=== PATIENT | female | born 1960 | race Caucasian/White ===

== ENCOUNTER 2018-08-23 14:35 | Emergency (ER) | payer BC, SELFPAY ==
[2018-08-23 14:36] VITALS: BP 145/79; PULSE 71; RESP 17; TEMP 36.3; O2SAT 98; BMI 32.8
--- NOTE | 2018-08-23 14:56 | RAD_ITS ---
STUDY: X-RAY - RIGHT HAND REASON FOR EXAM: Female, 57 years old. Pain at the base of the thumb following a fall. TECHNIQUE: 3 view(s) of the hand. COMPARISON: None. FINDINGS: Normal radiocarpal articulation. Normal distal radioulnar joint. Normal visualized carpal bones. Normal carpal articulations Normal carpometacarpal articulation of the thumb. Normal second through fifth carpometacarpal joints. Normal metacarpi. Normal metacarpophalangeal joint of the thumb. Normal interphalangeal joint of the thumb. Normal proximal and distal phalanges of the thumb. Normal metacarpophalangeal joints of the second through fifth fingers. Normal proximal and distal interphalangeal joints of the second through fifth fingers. Normal phalanges of the second through fifth fingers. The soft tissue structures are unremarkable. RAD/Hand Min 3 Views IMPRESSION: Normal x-ray examination of the hand. Electronically Signed: Hong Murillo, at 15:22 EDT , Service support ,
--- NOTE | 2018-08-23 15:25 | ED.VISSUMM ---
- ER Visit Summary Date of Service: 08/23/18 Chief Complaint: Right thumb injury History of Present Illness: The patient is a 57 F history of A. fib and reflux. Patient is right-hand dominant. She was sitting on the couch about a month ago reached over to separate her dogs he will be getting the flight and she lost her balance and fell injuring her right thumb. Denies any history she is right-hand dominant. No prior surgery to her right hand. Denies any other injuries. Physical Examination: Signs are stable afebrile. ENT exam unremarkable. Neck nontender no lymphadenopathy. Lungs clear to auscultation. Heart regular rhythm no murmur. Normal. Extremities moves all 4. Neurovascular intact. Thumb tender at the metacarpal phalangeal joint. No deformity. No swelling. Neurovascular intact. Normal cap refill touch sensation. Full flexion-extension of the right thumb. With stressing of the interphalangeal and MCP joints there is no signs of ecchymosis tear. No signs of a gamekeepers. Other fingers of the hand and palm are unremarkable. Patient has full flexion and extension of all digits of the hand. Test Results: X-ray of the right hand 3 view shows no acute abnormality read by myself. No fracture. No dislocation. Emergency Department Course and Treatment: Ice and elevate. Motrin for pain and inflammation. Follow-up if not improving. Treatment Plan: Ice and elevate. Motrin for pain. Follow-up with not improving. Disposition: Discharge Impression: Acute right thumb injury post fall This note was generated with SmashChart dictation software. It may contain incorrect words, spelling, and punctuation that were not noted in review of the chart prior to signing ED Disposition - Plan for ED Patient: Referrals: Suzan Orantes DO [Primary Care Provider] -
--- NOTE | 2018-08-23 15:28 | ED.DEP ---
ED Disposition - Plan for ED Patient: Disposition: Home or Assisted Living Instructions: CONTUSION, Upper Extremity Referrals: Carter Houser, [STAFF PHYSICIAN] - As soon as possible Additional Instructions: Ice and elevate your right thumb. Motrin for pain and inflammation. This is improving follow-up with Dr. Carter Houser of orthopedics for further evaluation. Your x-rays today were negative. No fracture or dislocation.
--- NOTE | 2018-08-23 15:51 | ED.RN ---
PT GIVEN WRITTEN AND VERBAL DISCHARGE INSTRUCTIONS. PT VERBALIZES UNDERSTANDING, IS TO FOLLOW UP WITH ORTHO. AMBULATES OUT OF DEPT BY SELF.
== END 2018-08-23 15:52 | disposition home or self-care (01) ==
LOC: ED 15:44
PROVIDERS: Emergency Provider Emergency Medicine; Family Provider Internal Medicine; PCP Internal Medicine
DX: S69.91XA Unspecified injury of right wrist, hand and finger(s), initial encounter (principal); I48.91 Unspecified atrial fibrillation; K21.9 Gastro-esophageal reflux disease without esophagitis; Z79.899 Other long term (current) drug therapy; W18.30XA Fall on same level, unspecified, initial encounter; Y93.89 Activity, other specified; Y92.009 Unspecified place in unspecified non-institutional (private) residence as the place of occurrence of the external cause; Y99.8 Other external cause status
CPT/HCPCS: 73130; 99282

== ENCOUNTER 2022-09-21 17:42 | Emergency (ER) | payer BC, SELFPAY ==
[2022-09-21 17:43] VITALS: BP 162/102; PULSE 88; RESP 18; TEMP 36.4; O2SAT 97; BMI 34.5
[2022-09-21 17:58] VITALS: BP 157/85; PULSE 83; RESP 17; O2SAT 93
[2022-09-21 18:51] VITALS: BP 165/98; PULSE 77; RESP 15; O2SAT 98
--- NOTE | 2022-09-21 18:56 | EKG12_ITS ---
Test Reason : CP Blood Pressure : / mmHG Vent. Rate : 072 BPM Atrial Rate : 072 BPM P-R Int : 140 ms QRS Dur : 086 ms QT Int : 402 ms P-R-T Axes : 061 028 030 degrees QTc Int : 440 ms Normal sinus rhythm Normal ECG Confirmed by KEYONA DU ([id number]), medical editor GAYLE WILKINS ([id number]) on 09/26/2022 8:37:24 AM Referred By: Confirmed By:KEYONA DU
--- NOTE | 2022-09-21 18:56 | ED.VIS.CHEST ---
HPI History of Present Illness Chief Complaint: Chest Pain Informant: patient Narrative Narrative: 61-year-old female presenting to the emergency department chief complaint of chest pain. Patient states that around noon today she was at an auction with her daughter. She had a pulled pork sandwich and [place] fries. Shortly thereafter she began to have a tightness in her chest which she describes as a sensation that I needed to take my bra off. It is progressively improved but is still very minimally present. She notes no nausea or vomiting. She notes no significant shortness of breath. Before going into work she noted that her blood pressure at home was elevated. She took her blood pressure at work because she still felt off and it was elevated and so she wanted to be evaluated. She states that her blood pressure has been in the 160 range when she takes it at home but when she goes to her doctor's office it is not usually that high. She is a non-smoker. No change in exercise tolerance. No DVT or PE risk factors. No arm or leg symptoms. [facility] Medical History Earache, left Heart disease Allergy/AdvReac Type Severity Reaction Status Date / Time Penicillins Allergy Angioedema Verified 09/21/22 17:43 Tetracyclines Allergy Anaphylaxis Verified 09/21/22 17:43 Social History Smoking Status: Never smoker ROS ROS ED Constitutional Constitutional ED: Denies chills or weight loss Eyes Eyes: Denies change in vision or diplopia ENT ENT ED: Denies ear pain, rhinorrhea or sore throat Cardiovascular Cardiovascular: Reports chest pain; Denies orthopnea, palpitations or racing heartbeat Respiratory/Chest Respiratory/Chest: Denies cough, dyspnea or orthopnea Gastrointestinal Gastrointestinal: Denies abdominal pain, diarrhea, nausea or vomiting Genitourinary Genitourinary ED: Denies dysuria, hematuria or urinary frequency Musculoskeletal Musculoskeletal: Denies arthralgias or myalgias Integumentary Denies abscess or rash Neurologic Neurologic: Denies headache(s) or weakness Psychiatric Psychiatric: Denies anxiety, depression, suicidal ideation or suicidal thoughts Endocrine Endocrinology: Denies polydipsia, polyphagia or polyuria Allergic/Immunologic Allergic/Immunologic ED: Denies mouth swelling, tongue swelling or urticaria EXAM Physical Exam Const Vital Signs: 09/21/22 17:43 09/21/22 17:58 09/21/22 18:51 Temperature 97.5 F L Temperature Source Temporal Pulse Rate 88 83 77 Respiratory Rate 18 17 15 Blood Pressure 162/102 H 157/85 H 165/98 H Blood Pressure Mean 122 109 120 Pulse Ox 97 93 98 Oxygen Delivery Method Room Air Room Air Room Air 09/21/22 19:00 Temperature Temperature Source Pulse Rate 73 Respiratory Rate 15 Blood Pressure 165/98 H Blood Pressure Mean 120 Pulse Ox 98 Oxygen Delivery Method Room Air Positive well nourished and well developed General Appearance ED: well developed HEENT Reports normocephalic, head/scalp atraumatic and moist mucous membranes Eyes PERRL and EOMs intact bilaterally Neck no lymphadenopathy, supple and no JVD Resp normal respiratory effort and clear to auscultation bilaterally Cardio regular rate, regular rhythm and no murmurs GI normal to inspection, nondistended, normoactive bowel sounds and non-tender Palpation: soft Back/Spine no CVA tenderness and normal ROM Extremity normal to inspection General Extremety ED: Negative for edema General Extremity: Negative for edema Neuro oriented x3 and CN's II-XII intact bilaterally Sensorium / Orientation: alert Motor Exam: strength 5/5 throughout Psych mental status grossly normal Mood & Affect: Negative for depressed or tearful Skin no rashes or lesions noted and no wounds MDM MDM MDM Narrative Medical decision making narrative: My interpretation of the chest x-ray is no acute process normal mediastinal silhouette. See as he is normal. BMP is normal. Troponin representing greater than 6 hours of constant symptoms is in the normal range at 4. Patient has had no events on the monitor. She received a dose of aspirin. At the current time I would believe that the patient most likely is not having ACS. I do not believe this to be pulmonary embolism dissection pneumothorax or pneumonia. I think it is reasonable that we discharge the patient home have her follow-up with primary care return if worsening or recurrent symptoms. Patient was updated with our plan and her results and in agreement with it. No further questions at the bedside Lab Data Attestation: I reviewed the patient's lab results. Labs: Laboratory Results - last 24 hr 09/21/22 19:40 WBC 9.5 RBC 4.32 Hgb 12.5 Hct 39.9 MCV 92.4 MCH 28.9 MCHC 31.3 L RDW Std Deviation 48.8 H RDW Coeff of Cale 14.4 Plt Count 370 MPV 11.2 Immature Gran % (Auto) 0.400 Neut % (Auto) 54.7 Lymph % (Auto) 35.6 [place] % (Auto) 7.3 Eos % (Auto) 1.6 Baso % (Auto) 0.4 Absolute Neuts (auto) 5.2 Absolute Lymphs (auto) 3.39 Nucleated RBC % 0 Sodium 140 Potassium 4.0 Chloride 108 H Carbon Dioxide 28.0 Anion Gap 4 L BUN 15 Creatinine 1.01 Estim Creat Clear Calc 52.63 Est GFR (MDRD) Af Amer 72 Est GFR (MDRD) Non-Af 59 L BUN/Creatinine Ratio 14.9 Glucose 93 Calcium 8.7 Troponin I High Sens 4 EKG Initial EKG: Attestation: I personally reviewed and interpreted this EKG as follows: Comments: No sinus rhythm ventricular rate of 72 bpm. No concerning features of ACS or ectopy noted Discharge Plan Triage Chief Complaint: Chest Pain ED Provider: Alejandro Mendez Dx/Rx/DC Orders Clinical Impression: Chest pain Instructions: ED Chest Pain, Noncardiac Primary Care Provider: Suzan Orantes Referrals: Suzan Orantes DO [Primary Care Provider] - 1-2 Weeks Disposition Disposition: Home, Self Care
[2022-09-21 19:00] VITALS: BP 165/98; PULSE 73; RESP 15; O2SAT 98
--- NOTE | 2022-09-21 19:05 | RAD_ITS ---
STUDY: X-RAY CHEST REASON FOR EXAM: Female, 61 years old. chest pain TECHNIQUE: Single AP portable view of the chest. COMPARISON: 08/20/2015 FINDINGS: The lungs are clear and expanded. There is no demonstrated pleural abnormality. Normal size heart. Normal mediastinum and fantasma. Normal visualized pulmonary arteries. Normal visualized aortic arch and descending thoracic aorta. Normal visualized thoracic spine. Normal visualized ribs, clavicles, and shoulders. There is no demonstrated abnormality of the visualized soft tissue structures of the upper abdomen. RAD/Chest 1 View (Portable) IMPRESSION: Normal x-ray examination of the chest. Electronically Signed: Vance Moran MD at 19:44 EDT ,
[2022-09-21] MEDS: Aspirin 81 MG TAB.CHEW 324 MG PO (19:38)
[2022-09-21 19:49] LABS: Absolute Lymphocyte Count 3.39 X10^3/uL (0.83-4.51); Absolute Neutrophil Count 5.2 X10^3/uL (2.0-7.7); Basophil# 0.04 X10^3/uL; Basophil% 0.4 % (0-1); Eosinophil# 0.15 X10^3/uL; Eosinophils% 1.6 % (0-5); Hematocrit 39.9 % (37-47); Hemoglobin 12.5 g/dL (12.0-15.0); Lymphocyte # 3.39 X10^3/ul (0.83-4.51); Lymphocyte % 35.6 % (19-41); Mean Corp Hgb Conc 31.3 g/dL (32-36); Mean Corpuscular Hgb 28.9 pg (27.0-32.0); Mean Corpuscular Volume 92.4 fL (81-99); Mean Platelet Vol. 11.2 fl (6.2-12.0); Monocyte# 0.69 X10^3/uL; Monocyte% 7.3 % (0-10); NRBC Flagged by Analyzer 0 % (0-5); Neutrophil % 54.7 % (47-70); Platelet Count 370 K/mm3 (150-450); RBC Distribution Width CV 14.4 % (11.6-14.6); RBC Distribution Width SD 48.8 fl (35.1-43.9); Red Blood Count 4.32 M/mm3 (4.2-5.4); White Blood Count 9.5 K/mm3 (4.4-11.0)
[2022-09-21 20:12] LABS: Anion Gap 4 (5-15); BUN 15 mg/dL (7-18); BUN/Creat Ratio 14.9 RATIO (10-20); Calcium,Total 8.7 mg/dL (8.5-10.1); Chloride 108 mmol/L (98-107); Creatinine, Serum 1.01 mg/dL (0.55-1.02); EST Glomerular Filtration Rate 59 mL/min (>60); Est Glom Filt Rate - Afr Amer 72 mL/min (>60); Estimated Creatinine Clearance 52.63 ml/min; Glucose 93 mg/dL (74-106); Sodium Level 140 mmol/L (136-145); Troponin-I HS (w/2H Reflex) 4 pg/mL (3.0-54.0)
[2022-09-21 21:00] VITALS: BP 139/80; PULSE 70; RESP 18; O2SAT 97
[2022-09-21 21:46] LABS: Reflex Troponin-HS? (from REC) Y
== END 2022-09-21 21:00 | disposition home or self-care (01) ==
PROVIDERS: Emergency Provider Emergency Medicine; PCP Internal Medicine; Visit Provider Emergency Medicine
DX: R07.9 Chest pain, unspecified (principal)
CPT/HCPCS: 71045; 80048; 84484; 85025; 93005; 99284

== ENCOUNTER 2023-09-28 19:17 | Observation (INO) | payer BC, SELFPAY ==
[2023-09-28 19:17] VITALS: BP 161/90; PULSE 86; RESP 14; TEMP 36.8; O2SAT 98; BMI 33.4
--- NOTE | 2023-09-28 19:54 | CT_ITS ---
We are attempting to reach an attending provider to discuss findings. An addendum with communication details will be sent when the communication is complete. STUDY: CT BRAIN WITHOUT CONTRAST REASON FOR EXAM: Female, 62 years old. Neuro deficit, acute, stroke suspected RADIATION DOSAGE (If Supplied By Facility): CTDIvol = ( ) mGy, DLP = ( 745.49 ) mGycm TECHNIQUE: Transaxial CT imaging of the brain was performed without administration of intravenous contrast material. Individualized dose optimization techniques were used for this CT. The protocol utilizes one or more of the following dose reduction techniques: automated exposure control, adjustment of mA and/or kV according to patient size,and/or use of iterative reconstruction technique. COMPARISON: No relevant priors. FINDINGS: Normal soft tissue structures. Normal calvarium. Normal size ventricles and extra-axial spaces for the patient''s age. Normal white matter tracts of the cerebral hemispheres. Normal basal ganglia and thalami. Normal brainstem. Normal cerebellum. There is no intracranial hemorrhage. There are no findings of an acute ischemic infarction. Normal visualized paranasal sinuses. CT/STROKE Brain/Head without Cont IMPRESSION: Normal unenhanced CT scan of the brain. Electronically Signed: Louis Tamayo MD at 20:20 EDT ,
--- NOTE | 2023-09-28 19:55 | CT_ITS ---
We are attempting to reach an attending provider to discuss findings. An addendum with communication details will be sent when the communication is complete. STUDY: CTA HEAD AND NECK WITH CONTRAST REASON FOR EXAM: Female, 62 years old. Neuro deficit, acute, stroke suspected RADIATION DOSAGE (If Supplied By Facility): CTDIvol = ( 21.26 ) mGy, DLP = ( 634.86 ) mGycm TECHNIQUE: CT angiography was performed with a multi-detector CT scanner. Data acquisition was obtained from the skull base through the vertex following intravenous administration of IV 100mL [id number]-[id number]. MIP images were reconstructed from the axial data set. Post-processing of the angiographic images was performed, with multiplanar reformation and 3D reconstruction. Individualized dose optimization techniques were used for this CT. The protocol utilizes one or more of the following dose reduction techniques: automated exposure control, adjustment of mA and/or kV according to patient size,and/or use of iterative reconstruction technique. COMPARISON: Noncontrast CT brain from today. FINDINGS: Normal bilateral petrous carotid arteries. Normal right cavernous carotid artery with a normal supraclinoid bifurcation. Normal left cavernous carotid artery with a normal supraclinoid bifurcation. Normal right A1 segments of the anterior cerebral artery. Normal left A1 segments of the anterior cerebral artery. There is non-visualization of the anterior communicating artery (ACOM). Normal bilateral A2 segments of the anterior cerebral arteries. Normal right M1 and M2 segments of the middle cerebral arteries, with a normal M1 bifurcation. Normal left M1 and M2 segments of the middle cerebral arteries, with a normal M1 bifurcation. Normal right posterior communicating artery (PCOM). Normal left posterior communicating artery (PCOM). Normal bilateral vertebral arteries. Normal basilar artery with a normal basilar bifurcation. The visualized bilateral superior cerebellar (SCA) arteries are normal. Normal bilateral P1, P2 and visualized P3 segments of the posterior cerebral arteries. There is no demonstrated aneurysm of the [place]. There is no demonstrated abnormality of the visualized brain. AORTIC ARCH: Normal visualized aortic arch. Normal origins of the brachiocephalic, left common carotid, and left subclavian arteries. RIGHT CAROTID ARTERIES: Normal right common carotid artery (CCA). Normal right common carotid bulb. Normal origin of the right internal carotid (ICA) artery without a hemodynamically significant stenosis. Normal visualized cervical portion of the right internal carotid artery. Normal origin of the right external carotid artery (ECA). LEFT CAROTID ARTERIES: Normal left common carotid artery (CCA). Small amount of plaque in the carotid bulb. Normal origin of the left internal carotid (ICA) artery without a hemodynamically significant stenosis. Normal visualized cervical portion of the left internal carotid artery. Normal origin of the left external carotid artery (ECA). VERTEBRAL ARTERIES: Normal bilateral vertebral arteries. CT/STROKE CTA Head AND Neck W/Con IMPRESSION: No significant stenosis Electronically Signed: Louis Tamayo MD at 20:45 EDT ,
[2023-09-28 20:11] LABS: Absolute Lymphocyte Count 2.57 X10^3/uL (0.83-4.51); Absolute Neutrophil Count 5.2 X10^3/uL (2.0-7.7); Basophil# 0.04 X10^3/uL; Basophil% 0.5 % (0-1); Eosinophil# 0.16 X10^3/uL; Eosinophils% 1.9 % (0-5); Hematocrit 39.3 % (37-47); Hemoglobin 12.6 g/dL (12.0-15.0); Lymphocyte # 2.57 X10^3/ul (0.83-4.51); Lymphocyte % 29.7 % (19-41); Mean Corp Hgb Conc 32.1 g/dL (32-36); Mean Corpuscular Hgb 28.8 pg (27.0-32.0); Mean Corpuscular Volume 89.9 fL (81-99); Mean Platelet Vol. 10.7 fl (6.2-12.0); Monocyte% 6.9 % (0-10); NRBC Flagged by Analyzer 0 % (0-5); Neutrophil # 5.24 X10^3/uL (2.7-7.7); Neutrophil % 60.7 % (47-70); Platelet Count 359 K/mm3 (150-450); RBC Distribution Width CV 13.9 % (11.6-14.6); RBC Distribution Width SD 46.6 fl (35.1-43.9); Red Blood Count 4.37 M/mm3 (4.2-5.4); White Blood Count 8.6 K/mm3 (4.4-11.0)
--- NOTE | 2023-09-28 20:18 | RAD_ITS ---
STUDY: X-RAY CHEST REASON FOR EXAM: Female, 62 years old. Neuro deficit, acute, stroke suspected TECHNIQUE: Single frontal view of the chest. COMPARISON: September 21, 2022 FINDINGS: The lungs are clear and expanded. There is no demonstrated pleural abnormality. Normal size heart. Normal mediastinum and fantasma. Normal visualized pulmonary arteries. Normal visualized aortic arch and descending thoracic aorta. Normal visualized thoracic spine. Normal visualized ribs, clavicles, and shoulders. There is no demonstrated abnormality of the visualized soft tissue structures of the upper abdomen. RAD/Chest 1 View IMPRESSION: Normal x-ray examination of the chest. Electronically Signed: Louis Tamayo MD at 21:23 EDT ,
[2023-09-28 20:31] LABS: Anion Gap 6 (5-15); BUN 13 mg/dL (7-18); BUN/Creat Ratio 15.1 RATIO (10-20); Calcium,Total 8.7 mg/dL (8.5-10.1); Chloride 108 mmol/L (98-107); Creatinine, Serum 0.86 mg/dL (0.55-1.02); EST Glomerular Filtration Rate 71 mL/min (>60); Est Glom Filt Rate - Afr Amer 86 mL/min (>60); Estimated Creatinine Clearance 75.68 ml/min; Glucose 132 mg/dL (74-106); Potassium 4.1 mmol/L (3.5-5.1); Sodium Level 141 mmol/L (136-145); Troponin-I HS 4 pg/mL (3.0-54.0)
[2023-09-28 20:39] LABS: Prothrombin Time (Protime)PT. 13.2 SECONDS (11.7-14.9)
--- NOTE | 2023-09-28 20:39 | EDS_ITS ---
HPI History of Present Illness Chief Complaint: Headache Detail of Chief Complaint: Headache and left visual field abnormality Informant: patient Onset/Context/Timing Onset: Today and Hours Context: Sudden Onset Timing: Intermittent Quality and Location: Positive for - (Left visual field abnormality) Onset: 1809 Current Severity: Gone Maximum Severity: Mild Worsened by: Nothing Relieved by: Not applicable Associated Symptoms Associated Symptoms: Positive for Headache (Complains of left retro-orbital discomfort) and Nausea; Negative for Vomiting or Chest Pain Narrative Narrative: Patient is a 62-year-old woman. She has history of GERD. She denies history of hypertension, diabetes or cardiovascular disease. She states she was at work. The visual disturbance started tenderness prior to the head discomfort. She had no trouble with speech or swallowing. She denies paresthesia, anesthesia or motor weakness in the upper or lower extremity. She denied problems with coordination or balance. She had no other complaints. Her symptoms resolved.. Patient has no history of migraine headaches and would be unusual for 62-year-old to be diagnosed with new onset migraine headaches. Patient states when she was looking at her 2 coworkers the 1 on the left was not visualized. Prior similar symptoms: No Recent Illness/Hospitalization: No [facility] Medical History Afib Earache, left Heart disease Home Medications ?Medication ?Instructions ?Recorded ?Last Taken ?Type naproxen 500 mg tablet 500 mg PO Q8H PRN pain 09/28/23 09/25/23 History omeprazole 40 mg capsule,delayed 40 mg PO DAILY 09/28/23 09/28/23 History release Allergy/AdvReac Type Severity Reaction Status Date / Time Penicillins Allergy Angioedema Verified 09/28/23 19:17 Tetracyclines Allergy Anaphylaxis Verified 09/28/23 19:17 Social History Smoking Status: Never smoker ROS ROS ED Constitutional Constitutional ED: Denies chills, fever(s) or subjective Eyes Eyes: Reports change in vision and other; Denies blurry vision or diplopia Cardiovascular Cardiovascular: Denies chest pain or palpitations Respiratory/Chest Respiratory/Chest: Denies cough or dyspnea Gastrointestinal Gastrointestinal: Denies abdominal pain, diarrhea or vomiting Genitourinary Genitourinary ED: Denies dysuria, hematuria or urinary frequency Musculoskeletal Musculoskeletal: Denies arthralgias, back pain, myalgias or neck pain Integumentary Denies abscess or rash Neurologic Neurologic: Reports headache(s); Denies paresthesias or weakness Psychiatric Psychiatric: Denies anxiety, depression or suicidal ideation Endocrine Endocrinology: Denies polydipsia, polyphagia or polyuria Hematologic/Lymphatic Hematologic/Lymphatic: Denies easy bleeding or easy bruising EXAM Physical Exam Const Vital Signs: 09/28/23 19:17 09/28/23 20:05 Temperature 98.2 F Temperature Source Temporal Pulse Rate 86 Respiratory Rate 14 Blood Pressure 161/90 H Blood Pressure Mean 113 Pulse Ox 98 Oxygen Delivery Method Room Air Room Air Positive well nourished and well developed General Appearance ED: well developed and NAD HEENT Reports moist mucous membranes and dry mucous membranes Mouth ED: Yes dry mucous membranes Mouth: dry mucous membranes Eyes PERRL and EOMs intact bilaterally Eyes Narrative: There is no nystagmus. There is no visual field cut pleasantly. Resp normal respiratory effort and clear to auscultation bilaterally Cardio no murmurs Rate: regular rate Rhythm: regular rhythm Heart Sounds: S1 normal and S2 normal GI normal to inspection, nondistended, normoactive bowel sounds, soft to palpation, non-tender, non-distended and no masses Back/Spine no CVA tenderness Extremity normal to inspection Neuro oriented x3, CN's II-XII intact bilaterally and no sensory deficits noted [place] Coma Scale: document GCS findings Spontaneous Obeys Commands Oriented 15 Sensorium / Orientation: alert Speech: speech normal Gait (Neuro): normal gait Psych mental status grossly normal Skin no wounds General Skin Exam: Negative for jaundice Lesions: no lesions Rashes: no rashes NIHSS NIHSS Initial: 1a Level of Consciousness: 0 1b LOC Questions (Score 2 if aphasic/stupor): 0 1c LOC Commands (Only score 1st attempt): 0 2 Best Gaze (If aphasic, use reflexive mvmts.): 0 3 Visual: 0 4 Facial Palsy: 0 5 Motor Arm Right (UN = amputation/fusion): 0 5 Motor Arm Left: 0 6 Motor Leg Right: 0 6 Motor Leg Left: 0 7 Limb ataxia (Only + if out of proportion): 0 8 Sensory (Aphasia/stupor=0 or 1, coma=2): 0 9 Best Language: 0 10 Dysarthria (mute, coma=2, intubated=UN): 0 11 Extinction and Inattention (only scored if +): 0 Total Score: 0 MDM MDM MDM Narrative Medical decision making narrative: Patient's symptoms are concerning for posterior circulatory event. Stroke order set was initiated. Received radiology contact that the CT minus and the CTA of the head and neck were both negative. With retro-orbital discomfort need to consider orbital cellulitis, glaucoma, chelle bt temporal arteritis since her visual symptoms resolved which 1 would not expect with temporal arteritis symptoms not consistent with an ocular migraine. This may be a very atypical presentation. History & Record Review Additional record(s) reviewed:: Prior ED visit Lab Data Attestation: I reviewed the patient's lab results. Lab results narrative: CBC normal. Basic metabolic panel normal. Troponin is normal. Labs: Laboratory Results - last 24 hr 09/28/23 20:03 WBC 8.6 RBC 4.37 Hgb 12.6 Hct 39.3 MCV 89.9 MCH 28.8 MCHC 32.1 RDW Std Deviation 46.6 H RDW Coeff of Cale 13.9 Plt Count 359 MPV 10.7 Immature Gran % (Auto) 0.300 Neut % (Auto) 60.7 Lymph % (Auto) 29.7 [place] % (Auto) 6.9 Eos % (Auto) 1.9 Baso % (Auto) 0.5 Absolute Neuts (auto) 5.2 Absolute Lymphs (auto) 2.57 Nucleated RBC % 0 PT 13.2 INR 1.0 APTT 34.0 Sodium 141 Potassium 4.1 Chloride 108 H Carbon Dioxide 27.0 Anion Gap 6 BUN 13 Creatinine 0.86 Estim Creat Clear Calc 75.68 Est GFR (MDRD) Af Amer 86 Est GFR (MDRD) Non-Af 71 BUN/Creatinine Ratio 15.1 Glucose 132 H Calcium 8.7 Troponin I High Sens 4 Radiography Chest X-Ray - ED: 1 View and Read by ED Physician (Single view chest x-ray reveals no acute abnormality. Cardiac silhouette size normal. Lung parenchyma normal. [place] is normal.) Diagnostic Testing: Clinical Impression(s) from Imaging Studies Brain CT 09/28/23 19:54 IMPRESSION: Normal unenhanced CT scan of the brain. Electronically Signed: Louis Tamayo MD at 20:20 EDT Reading Location ID and State: [facility] / [place] Tel , Service support , ADDENDUM: 09/28/232027 IMPRESSION: Normal unenhanced CT scan of the brain. N.B. : The above Results were Read Back by Louis Tamayo MD to James Camacho MD, and understanding confirmed on 09/28/2023 20:21:34 (ET). Electronically Signed: Louis Tamayo MD at 20:20 EDT Reading Location ID and State: [facility] / [place] Tel , Service support , Head/Neck CTA 09/28/23 19:55 IMPRESSION: No significant stenosis Electronically Signed: Louis Tamayo MD at 20:45 EDT Reading Location ID and State: [facility] / [place] Tel , Service support , ADDENDUM: 09/28/232051 IMPRESSION: No significant stenosis N.B. : The above Results were Read Back by Louis Tamayo MD to James Camacho MD, and understanding confirmed on 09/28/2023 20:45:38 (ET). Electronically Signed: Louis Tamayo MD at 20:45 EDT Reading Location ID and State: [facility] / [place] Tel , Service support , Discharge Plan Dx/Rx/DC Orders Clinical Impression: Visual field cut, Brain TIA Disposition Disposition: Acute Care Hospital [facility]
--- NOTE | 2023-09-28 20:59 | ECHOD_ITS ---
Reason For Study: TIA/CVA Procedure This was a 2D Doppler, Color Flow transthoracic echocardiogram. Exam performed portable in patient room. Left Ventricle Normal size and thickness. The left ventricular ejection fraction is 65 %. Right Ventricle Normal right ventricle. Atria The left and right atria are normal. Bubble contrast study is negative for PFO/ASD. Mitral Valve Moderate focal mitral valve calcification of the posterior leaflet. Trivial mitral valve insufficiency. Tricuspid Valve Mild tricuspid valve insufficiency. Normal pulmonary artery pressure. Aortic Valve Trisinus/trileaflet aortic valve. Pulmonic Valve The pulmonic valve is not well visualized. Trivial pulmonic valve insufficiency. Great Vessels Normal sized aortic root. Pericardium/Pleural No pericardial effusion. Medication Performed a rapid injection of agitated mix of 9 cc saline and 1cc air to assess for atrial septal defect. MMode/2D Measurements & Calculations LVIDd: 4.8 cm IVSd: 0.84 cm Ao root diam: 3.2 cm LVIDs: 2.7 cm LVPWd: 0.72 cm RVDd: 3.1 cm FS: 43.5 % LAV(MOD-bp): 46.5 ml LVAd ap4: 25.1 cm2 SV(MOD-sp4): 40.2 ml LAV(MOD-bp) Indexed: 23.4 ml/m2 LVLd ap4: 7.5 cm LAV(MOD-sp2): 41.5 ml EDV(MOD-sp4): 70.7 ml LAV(MOD-sp4): 50.7 ml EDV(sp4-el): 71.1 ml LVAs ap4: 15.1 cm2 LVLs ap4: 6.5 cm ESV(MOD-sp4): 30.5 ml ESV(sp4-el): 30.0 ml EF(MOD-sp4): 56.9 % EF(sp4-el): 57.9 % SV(sp4-el): 41.2 ml LA A4 area: 18.5 cm2 LA dimension(2D): 3.4 cm RA A4 area: 17.7 cm2 TAPSE: 2.9 cm Time Measurements MV dec time: 0.16 sec Doppler Measurements & Calculations MV E max devante: 72.0 cm/sec Lat Peak E' Devante: 8.6 cm/sec Med Peak E' Devante: 8.1 cm/sec MV A max devante: 92.7 cm/sec E/E' lat: 8.3 E/E' med: 8.9 MV E/A: 0.78 MV V2 max: 105.6 cm/sec MV P1/2t max devante: 82.6 cm/sec Ao V2 max: 117.4 cm/sec MV max P.5 mmHg MV P1/2t: 66.0 msec Ao max P.5 mmHg MV V2 mean: 55.2 cm/sec MV dec slope: 366.7 cm/sec2 Ao V2 mean: 80.0 cm/sec MV mean P.4 mmHg MVA(P1/2t): 3.3 cm2 Ao mean P.9 mmHg MV V2 VTI: 23.5 cm Ao V2 VTI: 26.1 cm AV (velocity ratio): 0.83 LV V1 max: 90.3 cm/sec PA V2 max: 93.9 cm/sec TR max devante: 240.4 cm/sec LV V1 max P.3 mmHg PA V2 mean: 67.5 cm/sec TR max P.1 mmHg LV V1 mean P.8 mmHg LV V1 mean: 62.4 cm/sec LV V1 VTI: 21.7 cm ECHO/Echo Complete Interpretation Summary The left ventricular ejection fraction is 65 %. Moderate focal mitral valve calcification of the posterior leaflet. Mild tricuspid valve insufficiency. Bubble contrast study is negative for PFO/ASD. Ordering Physician: Ani Bee Referring Physician: Suzan Orantes Performed By: Marium Perez, EMMANUEL, RVT
--- NOTE | 2023-09-28 21:00 | PCM.HP.STD ---
HPI - General General Date of Admission: 09/28/23 Date of Service: 09/28/23 Chief Complaint: Transient left eye visual change/headache HPI Narrative ZAINAB CONTRERAS, is a 62 F who presented to the emergency department at [facility] on 09/28/2023 with a chief complaint of a left temporal visual field deficit/abnormality with subsequent headache. She states that the field cut occurred first then headache with left-sided neck pain and upper back pain started to follow. She also complained of some strange discomfort in the right anterior neck in the area of the sternocleidomastoid. She reports she only has some soreness on that right neck area and still having some neck and shoulder pain with persistent headache that has not changed since it started. She has no history of migraine headaches and does not get frequent headaches. She has never had visual field cut before. She reported she was looking at one of her coworkers and noticed that she could not see his entire face she indicated she closed her eyes for a minute open the back up and symptoms were still there. So she came to emergency department. She stated her visual changes lasted for about an hour in total time from start to finish. She has no history of stroke or TIA. She is not hypertensive at baseline that she is aware, she does not have a diagnosis of hyperlipidemia and she is not diabetic. She has a very remote brief history of tobacco use and denies use of any other substances. She only very occasionally drinks a glass of wine. She does have a history of paroxysmal atrial fibrillation. She stated the last time she was in A-fib was 09/21/2022. She presented to the emergency department for this but quickly converted and was discharged. Vital signs on presentation showed temperature of 98.2, heart rate 86, respiratory 14, blood pressure is 161/90, pulse ox is 98% on room air. Her CBC is completely unremarkable. Coags are normal. Chemistry panel is unremarkable, except for her glucose which is 132 however this is not fasting glucose. Troponin was 4. EKG was normal sinus rhythm without any interval abnormalities or ST-T wave changes concerning for acute ischemia. CT of the brain was unremarkable for any findings. CTA of the head and neck was unremarkable. Chest x-ray was unremarkable. [facility] Medical History (Updated 09/28/23 @ 21:[address] Ani Bee, DO) Afib Heart disease Home Medications ?Medication ?Instructions ?Recorded ?Last Taken ?Type naproxen 500 mg tablet 500 mg PO Q8H PRN pain 09/28/23 09/25/23 History omeprazole 40 mg capsule,delayed 40 mg PO DAILY 09/28/23 09/28/23 History release Allergy/AdvReac Type Severity Reaction Status Date / Time Penicillins Allergy Angioedema Verified 09/28/23 19:17 Tetracyclines Allergy Anaphylaxis Verified 09/28/23 19:17 no significant family history no surgical history Social History (Updated 09/28/23 @ 21:[address] Ani Bee, DO) Smoking Status: Former smoker how long ago did patient quit smokin+ years ago alcohol intake: current alcohol intake frequency: holidays/special occasions only Alcohol type: wine substance use type: does not use ROS Constitutional Constitutional: Denies anorexia, change in weight, chills, fatigue, fever(s), malaise, night sweats, weakness or other Eyes Eyes: Reports other Details: Left temporal visual field cut has resolved ; Denies blurry vision, change in eye color, change in vision, discharge from eye(s), double vision, erythema, eye pain or loss of vision ENT HEENT: Denies abnormal hearing, dysphagia, ear pain, epistaxis, headache(s), hearing loss, nasal congestion, nasal discharge, post nasal drip, sinus pressure, sore throat or other Cardiovascular Cardiovascular: Denies chest pain, claudication, dyspnea on exertion, edema, lightheadedness, orthopnea, palpitations, paroxysmal nocturnal dyspnea, rapid heart rate, syncope or other Respiratory/Chest Respiratory/Chest: Denies cough, dyspnea, excessive phlegm production, hemoptysis, productive cough, shortness of breath at rest, shortness of breath with exertion, wheezing or other Gastrointestinal Gastrointestinal: Denies abdominal pain, coffee ground emesis, constipation, diarrhea, dyspepsia, hematemesis, hematochezia, loose stools, melena, nausea, vomiting or other Genitourinary Genitourinary: Denies burning urination, difficulty urinating, dysuria, hematuria, nocturia, urinary frequency, urinary hesitancy, urinary incontinence, urinary urgency or other Musculoskeletal Musculoskeletal: Reports back pain and neck pain; Denies arthralgias, joint pain, joint stiffness, joint swelling, myalgias or other Neurologic Neurologic: Reports headache(s); Denies abnormal gait, abnormal speech, confusion, disequilibrium, dizziness, focal weakness, numbness, paresthesias, seizure-like activity, seizures, syncope, tingling, tremor(s) or other Psychiatric Psychiatric: Denies anxiety, depression, homicidal ideation, suicidal ideation or other Endocrine Endocrinology: Denies change in body appearance, cold intolerance, excessive sweating, heat intolerance, polydipsia, polyuria or other Hematologic/Lymphatic Hematologic/Lymphatic: Denies anemia, easy bleeding, easy bruising, lymphadenopathy or other Allergic/Immunologic Allergic/Immunologic: Denies rhinitis, hives, eczemia, asthma or other Vital Signs Vital Signs Vital Signs: 09/28/23 19:17 09/28/23 20:05 Temperature 98.2 F Temperature Source Temporal Pulse Rate 86 Respiratory Rate 14 Blood Pressure 161/90 H Blood Pressure Mean 113 Pulse Ox 98 Oxygen Delivery Method Room Air Room Air Weight Weight: 91.2 kg Body Mass Index (BMI) 33.4 Physical Exam Const alert, oriented x3, no apparent distress and well nourished; Negative for average body habitus Constitutional Narrative: Obese, middle-aged, white female, sitting up in bed, friend at bedside, appears comfortable, nontoxic General Appearance: cooperative HEENT normocephalic, head/scalp atraumatic, hearing grossly normal bilaterally and moist oral mucous membranes HEENT Narrative: Mallampati 3, no thrush Eyes PERRL, EOMs intact bilaterally and conjunctivae normal Eyes Narrative: No scleral icterus Neck no lymphadenopathy and supple Neck Narrative: Trachea midline, no thyroid enlargement Resp normal respiratory effort, no retractions, no use of accessory muscles and clear to auscultation bilaterally Auscultation: Negative for rales, rhonchi or wheezes Cardio regular rate, regular rhythm, S1 normal heart sound, S2 normal heart sound, no murmurs, no rub, no gallops and no clicks GI normal to inspection, nondistended, normoactive bowel sounds, soft to palpation and non-tender Extremity no clubbing, cyanosis or edema Extremity Narrative: Pedal pulses are 2+ Skin no rashes or lesions noted, no wounds, skin turgor normal, no jaundice, no petechiae and no mottling Neuro oriented x3, CN's II-XII intact bilaterally, moves all extremities and no focal motor deficits Speech: speech normal Psych Mood & Affect: anxious Results Lab / Micro Data 09/28/23 20:03 09/28/23 20:03 Labs: Laboratory Results - last 24 hr 09/28/23 20:03: WBC 8.6, RBC 4.37, Hgb 12.6, Hct 39.3, MCV 89.9, MCH 28.8, MCHC 32.1, RDW Std Deviation 46.6 H, RDW Coeff of Cale 13.9, Plt Count 359, MPV 10.7, Immature Gran % (Auto) 0.300, Neut % (Auto) 60.7, Lymph % (Auto) 29.7, Pettis % (Auto) 6.9, Eos % (Auto) 1.9, Baso % (Auto) 0.5, Absolute Neuts (auto) 5.2, Absolute Lymphs (auto) 2.57, Nucleated RBC % 0, PT 13.2, INR 1.0, APTT 34.0, Sodium 141, Potassium 4.1, Chloride 108 H, Carbon Dioxide 27.0, Anion Gap 6, BUN 13, Creatinine 0.86, Estim Creat Clear Calc 75.68, Est GFR (MDRD) Af Amer 86, Est GFR (MDRD) Non-Af 71, BUN/Creatinine Ratio 15.1, Glucose 132 H, Calcium 8.7, Troponin I High Sens 4 Imaging Radiology Impression Brain CT 09/28/23 19:54 IMPRESSION: Normal unenhanced CT scan of the brain. Electronically Signed: Louis Tamayo MD at 20:20 EDT Reading Location ID and State: [facility] / [place] Tel , Service support , ADDENDUM: 09/28/232027 IMPRESSION: Normal unenhanced CT scan of the brain. N.B. : The above Results were Read Back by Louis Tamayo MD to James Camacho MD, and understanding confirmed on 09/28/2023 20:21:34 (ET). Electronically Signed: Louis Tamayo MD at 20:20 EDT , Head/Neck CTA 09/28/23 19:55 IMPRESSION: No significant stenosis Electronically Signed: Louis Tamayo MD at 20:45 EDT Reading Location ID and State: [id number] Tel , Service support , ADDENDUM: 09/28/232051 IMPRESSION: No significant stenosis N.B. : The above Results were Read Back by Louis Tamayo MD to James Camacho MD, and understanding confirmed on 09/28/2023 20:45:38 (ET). Electronically Signed: Louis Tamayo MD at 20:45 EDT , Assessment & Plan Assessment/Plan (1) Visual field cut: (2) Elevated blood-pressure reading without diagnosis of hypertension: (3) Headache: PLAN: Plan Left eye temporal visual field cut/headache -Patient with not many risk factors for stroke however she does have a history of paroxysmal atrial fibrillation and it appears that the last time she was in A-fib was 09/22/2023 -She is not on any aspirin or anticoagulation due to a [id number] score of 1 for female sex. -Visual field changes resolved but headache remains -Patient without history of headaches or migraines -Start aspirin 81 mg daily -Start high intensity of statin -Check hemoglobin A1c -Check lipid profile -Allow for permissive hypertension at this time -Check MRI -Check echocardiogram -NIH as per order set -I think we can defer PT and OT at this time as she has no residual deficits Headache -Headache occurred after visual field changes -No history of migraine but symptoms sound more migrainous versus cervicogenic in nature -As needed Tylenol -As needed NSAIDs -K-pad to left neck for pain Elevated blood pressure -Noted in the emergency department -Will continue to monitor -As needed blood pressure medication per stroke protocol GERD -Continue home PPI Obesity -BMI 33.5 next-recommend weight loss -Complicates treatment, prognosis, outcomes DVT prophylaxis -Lovenox subcu daily CODE STATUS -Full code Charges/Coding Visit Charges Inpatient E&M: 03924 Init Hosp L2
[2023-09-28 21:07] VITALS: BP 163/98; PULSE 94; RESP 15; O2SAT 97
[2023-09-28 21:15] VITALS: BP 163/98; PULSE 76; RESP 22; TEMP 36.9; O2SAT 97
[2023-09-28 21:36] VITALS: BMI 32.7
[2023-09-28 21:38] VITALS: BP 143/84; PULSE 72; RESP 18; TEMP 36.6; O2SAT 97
[2023-09-28 21:46] LABS: Hemoglobin A1c 5.6 % (3.8-5.6)
[2023-09-28] MEDS: Aspirin 81 MG TAB.CHEW PO (22:27)
[2023-09-28] MEDS: Ibuprofen 400 MG Tablet PO (22:27)
[2023-09-28] MEDS: Atorvastatin Calcium 80 MG Tablet PO (22:27)
[2023-09-28 23:00] VITALS: O2SAT 97
[2023-09-28] MEDS: DiphenhydrAMINE 25 MG Capsule PO (23:29)
[2023-09-29] VITALS (9 sets, daily range): BP systolic 124–130; BP diastolic 64–78; PULSE 71–98; RESP 16–18; TEMP 36.4–36.8; O2SAT 92–97; BMI 32.7
[2023-09-29 05:41] LABS: Anion Gap 7 (5-15); BUN 13 mg/dL (7-18); Calcium,Total 8.6 mg/dL (8.5-10.1); Chloride 108 mmol/L (98-107); Cholesterol 184 mg/dL (200); Creatinine, Serum 0.81 mg/dL (0.55-1.02); EST Glomerular Filtration Rate 76 mL/min (>60); Est Glom Filt Rate - Afr Amer 92 mL/min (>60); Estimated Creatinine Clearance 79.49 ml/min; Glucose 96 mg/dL (74-106); High Density Lipoprotein 46 mg/dL; Magnesium 2.3 mg/dL (1.6-2.6); Phosphorus 4.3 mg/dL (2.5-4.9); Sodium Level 140 mmol/L (136-145); Triglycerides 159 mg/dL; Very Low Density Lipoprotein 32 mg/dL (5-40)
--- NOTE | 2023-09-29 09:15 | MRI_ITS ---
EXAM: MR HEAD WITHOUT INTRAVENOUS CONTRAST CLINICAL INDICATION: TIA. TECHNIQUE: Multiplanar and multisequence MR images of the brain were obtained without intravenous contrast. COMPARISON: CT head without contrast and CTA head and neck with contrast 09/28/2023. FINDINGS: BRAIN AND EXTRA-AXIAL SPACES: Unremarkable. No intra- or extra-axial hemorrhage. No evidence of acute infarct. No intracranial mass or mass effect. There is preservation of the hinds/white matter interface. No hydrocephalus. No diffusion restriction or focal signal abnormalities throughout the brain parenchyma in all pulse sequences. Normal cerebral cortex and cerebral white matter of both cerebral hemispheres. Normal brainstem and posterior fossa. Normal ventricles and cisterns. SELLA: Unremarkable. Normal sella turcica, pituitary gland, infundibular stalk, optic chiasm and hypothalamus. AUDITORY SYSTEM: Unremarkable. The internal auditory canals are patent. BONES/JOINTS: Unremarkable. No discrete lytic or blastic abnormalities. SINUSES: Unremarkable as visualized. Normal paranasal sinuses. MASTOID AIR CELLS: Minimal mucosal edema in the right temporal mastoid air cells. They are non coalescent. Normal left mastoid air cells. ORBITS: Unremarkable as visualized. Both globes, extraocular muscles, optic nerves and retrobulbar fat appear unremarkable. VASCULATURE: Unremarkable as visualized. Normal flow voids in the major intracranial circulation. SOFT TISSUES: No significant abnormality. MRI/Brain without Contrast IMPRESSION: 1. Normal MRI brain without contrast. 2. Minimal mucosal edema in the right temporal mastoid air cells. Electronically Signed: Silvano Ramírez MD at 12:48 EDT ,
[2023-09-29] MEDS: LORazepam 0.5 MG Tablet PO (09:28)
[2023-09-29] MEDS: Pantoprazole Sodium 40 MG Tablet PO (09:28)
--- NOTE | 2023-09-29 10:49 | STROKE.CONS ---
Assessment and Plan: Stroke Assessment/Plan #Migraine vs Possible TIA- transient binocular visual field distortion. Classic for migraine aura but could potentially be triggered by a TIA in setting of afib. -No changes on MRI, by symptoms may still be due to TIA. Given lack of prior migraine history, I would still advocate for starting AC since CHADSVASC if this was a TIA would be 3. Furthermore, as the patient is approaching 65 yo , she would be considered for AC at that point regardless so would be reasonable to start AC now. I discussed risks/benefits of starting a DOAC and patient would prefer to discuss this with her own carding doubler and think about it since she is hesitant to take more medications. I think this is reasonable as long as no obvious thrombus on echo and can be seen by her carding doubler in the next 1-2 weeks. She is open to atleast starting ASA 81 daily for now. -MRI brain without stroke -CTA head/neck without significant stenosis -TTE pending. -continue high intensity statin -check Hba1c, lipid profile. Goal HbA1c <7, LDL <70. BP goal should be normotension -will need follow up with PCP/cardiology in 1-2 week, neurology in 4-6 weeks -outpatient eval for MONSE and treatment for anxiety/depression HPI Consult Data Date of Consult: 09/29/23 HPI Narrative HPI Narrative: 62 yo F w PMH of GERD, afib not on AC presenting on 09/27 with L temporal visual field deficit and SMITH. She was speaking with coworkers and noted she could not see the left side of the face of the person. 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 Also noted the left side of the clock was distorted. Describes distortation as a kleidoscope. Covered the left eye and still saw kaliedoscope distortion in L visual field. When closed both eyes saw balls of colors. Tried to go back to work but was unable to due to visual distortion. Developed R neck pain and upper back followed by persistent SMITH which is atypical for her. Came to the ED for eval. After a total of 1 hour (6:15pm-7:30pm), symptoms have resolved. SMITH lasted throughout the night and improved with medications. CTH and CTA head/neck were unremarkable. Not on AC for afib as CHADSVASC previously only 1. Denies history of migraine. ?Described SMITH an 09/14, associated with R neck pain, describes pain. Not thunderclap, worsened over >1 hour. No associated n/v. Had photophobia but no phonophobia. 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 Sleep is poor and fragmented, only sleeps at most 6 hours. [facility] Medical History (Updated 09/28/23 @ 22:00 by Jayda Greene) Acid reflux Afib Heart disease Home Medications ?Medication ?Instructions ?Recorded ?Last Taken ?Type naproxen 500 mg tablet 500 mg PO Q8H PRN pain 09/28/23 09/25/23 History omeprazole 40 mg capsule,delayed 40 mg PO DAILY 09/28/23 09/28/23 History release Allergy/AdvReac Type Severity Reaction Status Date / Time Penicillins Allergy Angioedema Verified 09/28/23 19:17 Tetracyclines Allergy Anaphylaxis Verified 09/28/23 19:17 Family History no significant family his Surgical History no surgical history Social History (Updated 09/28/23 @ 21:[address] Ani Bee, DO) Smoking Status: Former smoker how long ago did patient quit smokin+ years ago alcohol intake: current alcohol intake frequency: holidays/special occasions only Alcohol type: wine substance use type: does not use Vital Signs Vital Signs Vital Signs: 09/28/23 19:17 09/28/23 20:05 09/28/23 21:07 Temperature 98.2 F Temperature Source Temporal Pulse Rate 86 94 Pulse Strength Respiratory Rate 14 15 Respiratory Effort Respiratory Depth Respiratory Pattern Blood Pressure 161/90 H 163/98 H Blood Pressure Mean 113 119 Blood Pressure Source Blood Pressure Position Blood Pressure Location Pulse Ox 98 97 Oxygen Delivery Method Room Air Room Air Room Air 09/28/23 21:15 09/28/23 21:38 09/28/23 22:00 Temperature 98.5 F 97.8 F Temperature Source Oral Pulse Rate 76 72 Pulse Strength Normal (2+) Respiratory Rate 22 H 18 Respiratory Effort Respiratory Depth Respiratory Pattern Blood Pressure 163/98 H 143/84 H Blood Pressure Mean 119 103 Blood Pressure Source Monitor Blood Pressure Position Semi-Fowlers Blood Pressure Location Right Arm Pulse Ox 97 97 Oxygen Delivery Method Room Air 09/28/23 22:00 09/28/23 23:00 09/29/23 02:00 Temperature 98.0 F Temperature Source Oral Pulse Rate 71 Pulse Strength Respiratory Rate 18 Respiratory Effort Normal Non-Labored Respiratory Depth Normal Respiratory Pattern Normal Blood Pressure 129/76 H Blood Pressure Mean 93 Blood Pressure Source Monitor Blood Pressure Position Semi-Fowlers Blood Pressure Location Right Arm Pulse Ox 97 96 Oxygen Delivery Method Room Air Room Air Room Air 09/29/23 03:08 09/29/23 06:00 09/29/23 09:25 Temperature 97.5 F L 97.9 F Temperature Source Temporal Oral Pulse Rate 98 72 Pulse Strength Respiratory Rate 18 18 Respiratory Effort Normal Non-Labored Respiratory Depth Normal Respiratory Pattern Normal Blood Pressure 130/64 H 124/70 H Blood Pressure Mean 86 88 Blood Pressure Source Monitor Monitor Blood Pressure Position Semi-Fowlers Semi-Fowlers Blood Pressure Location Right Arm Left Arm Pulse Ox 96 97 Oxygen Delivery Method Room Air Room Air Room Air 09/29/23 09:30 09/29/23 09:40 09/29/23 09:42 Temperature Temperature Source Pulse Rate Pulse Strength Normal (2+) Respiratory Rate Respiratory Effort Normal Non-Labored Respiratory Depth Normal Respiratory Pattern Normal Blood Pressure Blood Pressure Mean Blood Pressure Source Blood Pressure Position Blood Pressure Location Pulse Ox 97 95 Oxygen Delivery Method Room Air Room Air Weight Weight: 89.3 kg Body Mass Index (BMI) 32.7 EEG Results Procedure Details EEG Procedure Details: ZAINAB CONTRERAS is a 62 year old F with a past medical history of , who presents for evaluation of Electroencephalogram on DATE at TIME NIHSS NIHSS Nursing Documentation NIHSS Nursing Documentation: NIHSS: Ischemic Stroke/TIA Start: 09/28/23 21:38 Text: For PCU Patients: NIH and Neuro Check every 4 Status: Active hours, PRN and with change in RN caregiver. Freq: [id number] Protocol: Activity Type Activity Date Activity User E-sign Co-sign Detail Recorded Client Recorded Date Recorded By Document 09/29/23 09:26 HS desktop 09/29/23 09:43 HS 09/29/23 09:26 NIH Stroke Scale [NIHSS] A score of 0 is normal or asymptomatic . Total possible score is 42. Inpatient: RN or Physician to activate a stroke alert for onset of new stroke symptoms or with NIHSS increase >/= 3 points. Following change in neurological status, NIHSS will be performed per physician order or more frequently PRN. -1a. Level of Consciousness Alert; keenly responsive -1b. LOC Questions Answers BOTH questions correctly. -1c. LOC Commands Performs both tasks correctly . -2. Best Gaze Normal -3. Visual No visual loss -4. Facial Palsy Normal symmetrical movements -5a. Left Arm No drift; arm holds 90 (or 45 ) degrees for full 10 seconds -5b. Right Arm No drift; arm holds 90 (or 45 ) degrees for full 10 seconds -6a. Left Leg No drift; leg holds 30-degree position for full 5 seconds -6b. Right Leg No drift; leg holds 30-degree position for full 5 seconds -7. Limb Ataxia Absent -8. Sensory Normal; no sensory loss -9. Best Language No aphasia; normal -10. Dysarthria Normal -11. Extinction and Inattention No abnormality -Total 0 Query Text:A score of 0 is normal or asymptomatic. Total possible score is 42 . ED: Notify Physician for NIHSS increase by > / = 3 points. Inpatient: RN or Physician to activate a stroke alert for NIHSS increase of > / = 3 points. Coma Scale [Assess] -Eye Opening Spontaneous -Motor Obeys Commands -Verbal Oriented [Total] -Coma Scale Total 15 Physical Exam Narrative MS: AAOx 3, attentive, follows commands, no dysarthria, no aphasia, no neglect CN: VFF, EOMI, no facial droop, ml facial sensation M: antigravity in all ext without drift S: nml to LT in all ext C: no gross appendicular ataxia Lab / Micro Data 09/28/23 20:03 09/29/23 05:00 Labs: Laboratory Results - last 24 hr 09/28/23 20:03: WBC 8.6, RBC 4.37, Hgb 12.6, Hct 39.3, MCV 89.9, MCH 28.8, MCHC 32.1, RDW Std Deviation 46.6 H, RDW Coeff of Cale 13.9, Plt Count 359, MPV 10.7, Immature Gran % (Auto) 0.300, Neut % (Auto) 60.7, Lymph % (Auto) 29.7, [place] % (Auto) 6.9, Eos % (Auto) 1.9, Baso % (Auto) 0.5, Absolute Neuts (auto) 5.2, Absolute Lymphs (auto) 2.57, Nucleated RBC % 0, PT 13.2, INR 1.0, APTT 34.0, Sodium 141, Potassium 4.1, Chloride 108 H, Carbon Dioxide 27.0, Anion Gap 6, BUN 13, Creatinine 0.86, Estim Creat Clear Calc 75.68, Est GFR (MDRD) Af Amer 86, Est GFR (MDRD) Non-Af 71, BUN/Creatinine Ratio 15.1, Glucose 132 H, Hemoglobin A1c 5.6, Calcium 8.7, Troponin I High Sens 4, TSH 1.270 09/29/23 05:00: Sodium 140, Potassium 4.0, Chloride 108 H, Carbon Dioxide 25.0, Anion Gap 7, BUN 13, Creatinine 0.81, Estim Creat Clear Calc 79.49, Est GFR (MDRD) Af Amer 92, Est GFR (MDRD) Non-Af 76, BUN/Creatinine Ratio 16.0, Glucose 96, Calcium 8.6, Phosphorus 4.3, Magnesium 2.3, Triglycerides 159, Cholesterol 184, LDL Cholesterol 106, VLDL Cholesterol 32, HDL Cholesterol 46 Imaging Radiology Impression Brain CT 09/28/23 19:54 IMPRESSION: Normal unenhanced CT scan of the brain. Electronically Signed: Louis Tamayo MD at 20:20 EDT , ADDENDUM: 09/28/232027 IMPRESSION: Normal unenhanced CT scan of the brain. N.B. : The above Results were Read Back by Louis Tamayo MD to James Camacho MD, and understanding confirmed on 09/28/2023 20:21:34 (ET). Electronically Signed: Louis Tamayo MD at 20:20 EDT , Head/Neck CTA 09/28/23 19:55 IMPRESSION: No significant stenosis Electronically Signed: Louis Tamayo MD at 20:45 EDT Reading Location ID and State: [address] [place] [address] Tel , Service support , ADDENDUM: 09/28/232051 IMPRESSION: No significant stenosis N.B. : The above Results were Read Back by Louis Tamayo MD to James Camacho MD, and understanding confirmed on 09/28/2023 20:45:38 (ET). Electronically Signed: Louis Tamayo MD at 20:45 EDT Reading Location ID and State: [facility] / [place] Tel , Service support , Chest X-Ray 09/28/23 20:18 IMPRESSION: Normal x-ray examination of the chest. Electronically Signed: Louis Tamayo MD at 21:23 EDT Reading Location ID and State: [address] [place] [address] Tel , Service support , Active Medications Active Medications Active Medications: Current Medications Generic Name Dose Route Start Last Admin Trade Name Freq PRN Reason Stop Dose Admin Acetaminophen 650 mg 09/28/23 21:38 Acetaminophen 325 Mg Tablet PO Q4H PRN PRN Pain 1-10 Or Fever>99.6 Atorvastatin Calcium 80 mg 09/28/23 22:00 09/28/23 22:27 Atorvastatin Calcium 80 Mg Tablet PO 80 mg QHS LIA Administration Enoxaparin Sodium 40 mg 09/29/23 10:00 09/29/23 09:29 Enoxaparin 40 Mg/0.4 Ml Syringe SC Not Given DAILY LIA Hydralazine HCl 5 mg 09/28/23 21:38 Hydralazine 20 Mg/Ml Vial IV 09/29/23 21:38 Q30M PRN maintain BP parameters with HR <60 Sodium Chloride 250 mls @ 15 mls/hr 09/28/23 22:04 IV .[id number] PRN Additional IVPB Infusion Sodium Chloride 250 mls @ 15 mls/hr 09/28/23 22:04 IV .[id number] PRN Saline Flush Ibuprofen 400 mg 09/28/23 21:38 09/28/23 22:27 Ibuprofen 400 Mg Tablet PO 400 mg Q4H PRN PRN Administration Pain 1-10 Or Fever >100.7 Labetalol HCl 10 - 20 mg 09/28/23 21:38 Labetalol (Prefilled) 20 Mg/4 Ml IV 09/29/23 21:38 Q10M PRN PRN maintain BP parameters with HR >/=60 Melatonin 3 mg 09/28/23 21:38 Melatonin 3 Mg Tablet PO QHS PRN PRN INSOMNIA Ondansetron HCl 4 mg 09/28/23 21:38 Ondansetron 4 Mg/2 Ml Vial IV Q8H PRN PRN NAUSEA/VOMITING Pantoprazole Sodium 40 mg 09/29/23 10:00 09/29/23 09:28 Pantoprazole Sodium 40 Mg Tablet PO 40 mg DAILY LIA Administration Senna/Docusate Sodium 2 tablet 09/28/23 21:38 Senna/Docusate Sodium 1 Tablet PO BID PRN PRN Constipation Sodium Chloride 10 - 40 ml 09/28/23 22:04 0.9% Saline Lock 10 Ml Syringe IV UD PRN SALINE FLUSH
--- NOTE | 2023-09-29 10:50 | CASEMGMT ---
Social Work As per admitting RN, pt does not have LW/POA and declined further information at this time. XENA Khan
[2023-09-29] MEDS: LORazepam 2 MG/ML Syringe 1 MG IV (11:33)
[2023-09-29] MEDS: 0.9% Saline Lock 10 ML Syringe IV (11:33)
--- NOTE | 2023-09-29 13:54 | CASEMGMT ---
Social Work PHA-9 not completed as pt did not have stroke. XENA Khan
--- NOTE | 2023-09-29 14:32 | DCINST_ITS ---
Discharge Instructions Diet Discharge Diet: Low fat / Low cholesterol Activity Discharge Activity: Return to Normal Activity Weight Bearing Status: Weight bearing as tolerated Dressing / Incision Call your doctor if you observe: Fever of 101 or Higher and Shortness of breath Follow Up Care Test Results: Test results from this visit will be discussed in further detail at your follow- up appointment, if applicable. Discharge Plan Admission Admit Date/Time: 09/28/23 20:52 Primary Reason for Your Visit: TIA Attending Provider: Dulce Maria Solis Primary Care Provider: Suzan Orantes Consulting Providers: Heladio Espinoza; Ashley Cerrato; Georgette Greenberg; Daphney Metz; Brenda Moreira; Brian Naranjo; Juani Layne; Micky Serrano; Arnie Martinez; Dre Bell; Chanelle Nye; Cristian Rosenbaum; Janice Nash; Rena Coates; Jerry Garcia; Tommy Hunter; Chong Han; Jeremías Fisher; Jessica Bee; Erich Henry; Ani Bee Instructions Patient Instructions: TIA Dc Additional Instructions / Restrictions: Please follow-up with your verification engineer within 1 to 2 weeks to discuss initiation of anticoagulants in light of history of A-fib. Discharge Orders/Prescriptions Prescriptions: New aspirin 81 mg tablet,chewable 81 mg PO DAILY Qty: 30 2RF atorvastatin 40 mg tablet 40 mg PO QHS Qty: 30 2RF Continued omeprazole 40 mg capsule,delayed release(DR/EC) 40 mg PO DAILY Discontinued naproxen 500 mg tablet 500 mg PO Q8H PRN (Reason: pain) Referrals / Follow Up: Suzan Orantes DO [Primary Care Provider] - Within 1 Week Disposition Disposition (needs filled in before D/C Order can be placed): Home, Self Care
--- NOTE | 2023-09-29 14:33 | PCM.DC.SUM ---
Providers Date of Admission: 09/28/23 Date of Discharge: 09/29/23 Primary Care Physician: Dr. Suzan Orantes, DO Consultations 09/28/23 21:38 Consult: Tele-Neurology Routine Consulting Provider: [facility] Reason for Consult: Acute Ischemic Stroke/TIA EMERGENT Consult: No MD Notified: Yes Date Notified: 09/28/23 Time Notified: 22:36 Method of Notification: Answering Service Nursing Unit Staff Notify [facility] of Tele-Neurology Consult: Yes Reason For Visit: TRANSIENT L EYE VISUAL DEFICIT AND SMITH Diagnosis Discharge Diagnosis (1) Visual field cut: Status: Acute Code(s): H53.40 - Unspecified visual field defects (2) Elevated blood-pressure reading without diagnosis of hypertension: Status: Acute Code(s): R03.0 - Elevated blood-pressure reading, without diagnosis of hypertension (3) Headache: Status: Acute Code(s): R51.9 - Headache, unspecified Medications at Discharge Home Medications omeprazole 40 mg capsule,delayed release 40 mg PO DAILY 09/28/23 aspirin 81 mg chewable tablet 81 mg PO DAILY #30 tabs 09/29/23 atorvastatin 40 mg tablet 40 mg PO QHS #30 tabs 09/29/23 Hospital Course Operations None Procedures 2-D Echocardiogram Summary of Care Provided Minutes Spent on Discharge: 55 Hospital Course: Patient is a 62 y/o female with a PMH as outlined who was admitted via the ED on 09/28/2023 with a complaint of transient left temporal visual field deficit with subsequent headache. His symptoms had started while she was at work on the day of admission. She lost vision in the outer aspect of her left eye and then started having left-sided neck pain and upper back pain. She had never had such visual field deficits before and denied any history of headaches. She denies a history of stroke or TIA. Review of systems otherwise negative. CT of the brain showed no acute intracranial pathology and CT of the head and neck showed no hemodynamically significant stenosis. She was admitted and managed for TIA. She had MRI of the brain which showed no evidence of stroke. Neurology was consulted and reviewed patient. Of note his symptoms had resolved by the time I reviewed her. She did have a history of A-fib and says the last time she was in A-fib was in September 2022. At that time she came into the ED but she converted to normal sinus rhythm and so was discharged home. Neurology reviewed patient and recommended that patient be anticoagulated as a Sawyer Vascor was 4 and she was approaching 65. Patient however declined and opted to follow-up with her outpatient supply chain technician for decision to be made about whether to start anticoagulation. Neurology therefore commended that she be started on p.o. aspirin 81 mg daily. This was prescribed for patient. Of note 2D echo was done but read was still pending at time of discharge. Patient was counseled that she would be called with the results of the 2D echo as soon as it was read, likely 09/30/2023. She was given a prescription for p.o. atorvastatin 40 mg nightly as well as p.o. aspirin 81 mg daily. She is follow-up with her primary care doctor within 1 to 2 weeks. Patient seen and examined prior to discharge. She had no active complaints and had an uneventful night. Review of systems otherwise negative. Labs and vitals reviewed. Home medication reviewed and reconciled. Physical Exam Const alert, oriented x3 and no apparent distress General Appearance: cooperative, comfortable and well kempt Orientation / Consciousness: awake Exam Limitations: no limitations HEENT normocephalic, head/scalp atraumatic, hearing grossly normal bilaterally, moist oral mucous membranes and oropharynx normal Mouth: oral and palatal mucosa normal Eyes PERRL, EOMs intact bilaterally and conjunctivae normal Neck no lymphadenopathy, supple and no JVD Resp normal respiratory effort and no retractions Cardio regular rate, regular rhythm, S1 normal heart sound, S2 normal heart sound and no murmurs GI normal to inspection, nondistended, normoactive bowel sounds, soft to palpation, non-tender and non-distended Extremity normal to inspection, full ROM and no clubbing, cyanosis or edema Skin no rashes or lesions noted, no wounds and skin turgor normal Neuro oriented x3, CN's II-XII intact bilaterally, moves all extremities, no focal motor deficits and no sensory deficits noted Sensorium / Orientation: awake and alert Motor Exam: strength 5/5 throughout Psych affect normal Weight / BMI Weight Weight: 196 lb 13.965 oz Body Mass Index (BMI) 32.7 ABG / Lab / Microbiology Data 09/28/23 20:03 09/29/23 05:00 Laboratory: Laboratory Results - last 24 hr 09/28/23 20:03: WBC 8.6, RBC 4.37, Hgb 12.6, Hct 39.3, MCV 89.9, MCH 28.8, MCHC 32.1, RDW Std Deviation 46.6 H, RDW Coeff of Cale 13.9, Plt Count 359, MPV 10.7, Immature Gran % (Auto) 0.300, Neut % (Auto) 60.7, Lymph % (Auto) 29.7, [place] % (Auto) 6.9, Eos % (Auto) 1.9, Baso % (Auto) 0.5, Absolute Neuts (auto) 5.2, Absolute Lymphs (auto) 2.57, Nucleated RBC % 0, PT 13.2, INR 1.0, APTT 34.0, Sodium 141, Potassium 4.1, Chloride 108 H, Carbon Dioxide 27.0, Anion Gap 6, BUN 13, Creatinine 0.86, Estim Creat Clear Calc 75.68, Est GFR (MDRD) Af Amer 86, Est GFR (MDRD) Non-Af 71, BUN/Creatinine Ratio 15.1, Glucose 132 H, Hemoglobin A1c 5.6, Calcium 8.7, Troponin I High Sens 4, TSH 1.270 09/29/23 05:00: Sodium 140, Potassium 4.0, Chloride 108 H, Carbon Dioxide 25.0, Anion Gap 7, BUN 13, Creatinine 0.81, Estim Creat Clear Calc 79.49, Est GFR (MDRD) Af Amer 92, Est GFR (MDRD) Non-Af 76, BUN/Creatinine Ratio 16.0, Glucose 96, Calcium 8.6, Phosphorus 4.3, Magnesium 2.3, Triglycerides 159, Cholesterol 184, LDL Cholesterol 106, VLDL Cholesterol 32, HDL Cholesterol 46 Radiography Diagnostic Testing: Radiology Impression Brain CT 09/28/23 19:54 IMPRESSION: Normal unenhanced CT scan of the brain. Electronically Signed: Louis Tamayo MD at 20:20 EDT , ADDENDUM: 09/28/232027 IMPRESSION: Normal unenhanced CT scan of the brain. N.B. : The above Results were Read Back by Louis Tamayo MD to James Camacho MD, and understanding confirmed on 09/28/2023 20:21:34 (ET). Electronically Signed: Louis Tamayo MD at 20:20 EDT Reading Location ID and State: [address] [place] [address] Tel , Service support , Head/Neck CTA 09/28/23 19:55 IMPRESSION: No significant stenosis Electronically Signed: Louis Tamayo MD at 20:45 EDT , ADDENDUM: 09/28/232051 IMPRESSION: No significant stenosis N.B. : The above Results were Read Back by Louis Tamayo MD to James Camacho MD, and understanding confirmed on 09/28/2023 20:45:38 (ET). Electronically Signed: Louis Tamayo MD at 20:45 EDT , Chest X-Ray 09/28/23 20:18 IMPRESSION: Normal x-ray examination of the chest. Electronically Signed: Louis Tamayo MD at 21:23 EDT , Brain MRI 09/29/23 09:15 IMPRESSION: 1. Normal MRI brain without contrast. 2. Minimal mucosal edema in the right temporal mastoid air cells. Electronically Signed: Silvano Ramírez MD at 12:48 EDT , D/C Instructions Discharge Diet: Low fat / Low cholesterol Weight Bearing Status: Weight bearing as tolerated Call your doctor if you observe: Fever of 101 or Higher and Shortness of breath Meaningful Use Info Meaningful Use Meaningful Use Diagnoses (Choose all that apply): None applicable Ischemic Stroke Statin Dosing Therapy Reference: STATIN DOSE THERAPY REFERENCE: * Patients > 75 years receive moderate or high dose statin therapy. * Patients 75 years or YOUNGER should receive HIGH intensity statin dose unless contraindicated. You will be required to document reason for non-treatment if statin daily dose does not meet guidelines. HIGH DOSE STATIN THERAPY DAILY Atorvastatin > than or = to 40 mg Rosuvastatin > than or = to 20 mg Amlodipine + Atorvastatin > than or = to 2.5/40 mg Ezetimibe + Simvastatin 10/80 mg Simvastatin 80mg Discharge Plan Admission Admit Date/Time: 09/28/23 20:52 Primary Reason for Your Visit: TIA Attending Provider: Dulce Maria Solis Primary Care Provider: Suzan Orantes Consulting Providers: Heladio Espinoza; Ashley Cerrato; Georgette Greenberg; Daphney Metz; Brenda Moreira; Brian Naranjo; Juani Layne; Micky Serrano; Arnie Martinez; Dre Bell; Chanelle Nye; Cristian Rosenbaum; Janice Nash; Rena Coates; Jerry Garcia; Tommy Hunter; Chong Han; Jeremías Fisher; Jessica Bee; Erich Henry; Ani Bee Instructions Patient Instructions: TIA Dc Additional Instructions / Restrictions: Please follow-up with your supply chain technician within 1 to 2 weeks to discuss initiation of anticoagulants in light of history of A-fib. Discharge Orders/Prescriptions Prescriptions: New aspirin 81 mg tablet,chewable 81 mg PO DAILY Qty: 30 2RF atorvastatin 40 mg tablet 40 mg PO QHS Qty: 30 2RF Continued omeprazole 40 mg capsule,delayed release(DR/EC) 40 mg PO DAILY Discontinued naproxen 500 mg tablet 500 mg PO Q8H PRN (Reason: pain) Referrals / Follow Up: Suzan Orantes DO [Primary Care Provider] - Within 1 Week Disposition Disposition (needs filled in before D/C Order can be placed): Home, Self Care Charges/Coding Visit Charges Inpatient E&M: 59778 Disch Hosp >30min
--- NOTE | 2023-09-29 14:36 | CASEMGMT ---
Social Work- SW met with pt to complete SDOH assessment. 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 Pt states that she is not behind on any of her bills. Pt states that her mother in June 2023 and now her aunt is ill with a similar dx. Pt reports that she is stressed and does not sleep well. Pt has a grandson that she is close to and has 2 dogs that she cares for. 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 Pt was receptive to resources. SW provided WHIRE card, PIIP information, food pantry information, and mental health providers. Pt states no other needs at this time. SW was present for neurology consult; pt did not have a stroke and it is believed that pt had a migraine or TIA. PHQ9 not completed d/t no stroke dx. SW remains available to follow. ERNESTINA Fisher
[2023-09-29 15:39] LABS: Hemoglobin A1c 5.6 % (3.8-5.6)
== END 2023-09-29 14:30 | disposition home or self-care (01) ==
LOC: ED 20:48 → PCU 21:09
PROVIDERS: Admitting Provider Internal Medicine; Emergency Provider Emergency Medicine; PCP Internal Medicine; Visit Provider Student in an Organized Health Care Education/Training Program
DX: H53.40 Unspecified visual field defects (principal); I48.0 Paroxysmal atrial fibrillation; Z87.891 Personal history of nicotine dependence; M54.2 Cervicalgia; R03.0 Elevated blood-pressure reading, without diagnosis of hypertension; R51.9 Headache, unspecified; K21.9 Gastro-esophageal reflux disease without esophagitis; Z59.86 Financial insecurity; E66.9 Obesity, unspecified; Z68.33 Body mass index [BMI] 33.0-33.9, adult
CPT/HCPCS: 36415; 70450; 70496; 70498; 70551; 71045; 80048; 80061; 83036; 83735; 84100; 84443; 84484; 85025; 85610; 85730; 93005; 93306; 94668; 94762; 96374; 99221; 99284; Q9967; A4216; G0378

== ENCOUNTER → 2024-12-02 | Outpatient (CLI) | payer BC, SELFPAY ==
[2024-12-09 18:08] LABS: Age Gdln ACOG Testing 30-65 (.); HPV APTIMA, High Risk Negative (Negative)
== END | disposition home or self-care (01) ==
LOC: LABSPEC 13:22
PROVIDERS: PCP Family Medicine; Referring Provider Nurse Practitioner Family; Visit Provider Nurse Practitioner Family
DX: Z12.4 Encounter for screening for malignant neoplasm of cervix (principal)
CPT/HCPCS: 87624; 88175; G0145

== ENCOUNTER 2025-01-12 16:46 | Emergency (ER) | payer BC, SELFPAY ==
[2025-01-12 16:48] VITALS: BP 170/81; PULSE 79; RESP 18; TEMP 36.3; O2SAT 99; BMI 33.9
--- NOTE | 2025-01-12 17:06 | EKG12_ITS ---
Test Reason : Blood Pressure : */* mmHG Vent. Rate : 64 BPM Atrial Rate : 64 BPM P-R Int : 140 ms QRS Dur : 88 ms QT Int : 390 ms P-R-T Axes : 62 24 26 degrees QTcB Int : 402 ms Normal sinus rhythm Normal ECG Confirmed by Sagar Avila ([id number]), assistant production editor ARTIS CAR ([id number]) on 01/14/2025 11:34:42 AM Referred By: Confirmed By: Sagar Avila
--- NOTE | 2025-01-12 17:12 | EX.ED.DYSGE1 ---
HPI History of Present Illness Chief Complaint: Hypertension Informant: patient Onset/Context/Timing Onset: Today Context: Sudden Onset Timing: Continuous Quality: Aching Location: Head Worsened by: Stress Relieved by: Nothing Narrative Narrative: Patient presents with elevated blood pressures that were noticed today. Patient states it began rather suddenly. Patient states it has been constant. Patient states she felt lightheaded while she was driving to work. Patient states when she got to work the nurse took her blood pressure there and it was 170/110. Patient states she sat down for a little while and her repeat blood pressure was 164/90. Patient states she started working. Patient states she felt headache and lightheaded again. Patient went to human resources. Patient states the nurse checked her blood pressure again and it was 176/105. Patient was then referred to the emergency department. Patient admits to some mild pain across her chest. Patient is currently on a heart monitor. Patient denies any palpitations however. Patient admits to some blurry vision. Patient also admits to some pain in her anterior neck. Patient denies any difficulty swallowing or difficulty breathing. [facility] Medical History Former smoker Hypertension Migraines GERD (gastroesophageal reflux disease) Chronic back pain Goiter Anxiety Essential (primary) hypertension Headache Visual field cut Afib Heart disease Home Medications ?Medication ?Instructions ?Recorded ?Last Taken ?Type omeprazole 40 mg capsule,delayed 40 mg PO DAILY reflux 09/28/23 01/11/25 History release aspirin 81 mg chewable tablet 81 mg PO DAILY #30 tabs 09/29/23 01/12/25 Rx Allergy/AdvReac Type Severity Reaction Status Date / Time Penicillins Allergy Angioedema Verified 01/12/25 16:50 Tetracyclines Allergy Anaphylaxis Verified 01/12/25 16:50 Family History (Updated 10/12/23 @ 13:03 by Nithya Rg RN) Grandmother Diabetes Thyroid disorder Heart disease Mother Diabetes Father Thyroid disorder Cancer Grandfather Myocardial infarction Surgical History History of cholecystectomy Hx of tubal ligation Social History Smoking Status: Former smoker how long ago did patient quit smokin+ years ago alcohol intake: current alcohol intake frequency: holidays/special occasions only Alcohol type: wine substance use type: does not use ROS ROS ED Constitutional Constitutional ED: Denies chills or fever(s) Eyes Eyes: Reports blurry vision; Denies change in vision ENT ENT ED: Denies rhinorrhea or sore throat Cardiovascular Cardiovascular: Reports chest pain; Denies palpitations Respiratory/Chest Respiratory/Chest: Denies cough or dyspnea Gastrointestinal Gastrointestinal: Denies nausea or vomiting Genitourinary Genitourinary ED: Denies dysuria or hematuria Musculoskeletal Musculoskeletal: Reports neck pain; Denies back pain Integumentary Denies abscess or rash Neurologic Neurologic: Reports headache(s); Denies weakness Allergic/Immunologic Allergic/Immunologic ED: Denies mouth swelling or urticaria EXAM Physical Exam Const Vital Signs: 01/12/25 16:48 01/12/25 17:38 01/12/25 18:36 Temperature 97.4 F L Temperature Source Temporal Pulse Rate 79 64 Respiratory Rate 18 13 Respiratory Pattern Normal Blood Pressure 170/81 H 163/78 H Blood Pressure Mean 110 106 Pulse Ox 99 98 Oxygen Delivery Method Room Air Room Air 01/12/25 20:00 01/12/25 21:01 Temperature 97.4 F L Temperature Source Pulse Rate 68 76 Respiratory Rate 16 16 Respiratory Pattern Blood Pressure 155/78 H 154/82 H Blood Pressure Mean 103 106 Pulse Ox 96 97 Oxygen Delivery Method Room Air Positive well nourished and well developed General Appearance ED: well developed and NAD HEENT Reports moist mucous membranes Neck supple and no JVD Resp normal respiratory effort and clear to auscultation bilaterally Cardio regular rate and regular rhythm GI non-tender and non-distended Palpation: soft Extremity normal to inspection General Extremety ED: Negative for edema or tenderness General Extremity: Negative for edema Neuro oriented x3, CN's II-XII intact bilaterally and no sensory deficits noted Sensorium / Orientation: alert Motor Exam: strength 5/5 throughout Psych mental status grossly normal MDM MDM MDM Narrative Medical decision making narrative: Differential diagnosis includes hypertensive urgency, hypertensive emergency, uncontrolled hypertension, anxiety, cardiac dysrhythmia, cardiac ischemia, and tension headache. EKG will be obtained to assess for cardiac dysrhythmia and cardiac ischemia. Chest x-ray will be obtained to assess for pneumonia, bronchitis, widened mediastinum, and congestive heart failure. CBC will be obtained to assess for leukocytosis and anemia. Basic metabolic profile will be obtained to assess for renal function and electrolyte abnormality. Urinalysis will be obtained to assess for urinary tract infection and hematuria. High-sensitivity troponin will be obtained to assess for cardiac ischemia. 2-hour repeat high-sensitivity troponin will be obtained to assess for ongoing cardiac ischemia. History & Record Review Additional record(s) reviewed:: Prior inpatient record, Prior ED visit and Prior labs Lab Data Attestation: I reviewed the patient's lab results. Lab results narrative: CBC was reviewed and was within normal. Basic metabolic profile was reviewed and was within normal limits. Initial high-sensitivity troponin was reviewed and was less than 6. 2-hour repeat high-sensitivity troponin was reviewed and was also less than 6. Urinalysis was reviewed. There is no evidence of urinary tract infection or hematuria. Labs: Laboratory Results - last 24 hr 01/12/25 01/12/25 01/12/25 17:13 17:45 19:25 WBC 8.2 RBC 4.43 Hgb 13.0 Hct 40.2 MCV 90.7 MCH 29.3 MCHC 32.3 RDW Std Deviation 47.3 H RDW Coeff of Cale 14.2 Plt Count 369 MPV 10.6 Immature Gran % (Auto) 0.600 Neut % (Auto) 60.6 Lymph % (Auto) 30.4 Richardson % (Auto) 6.8 Eos % (Auto) 1.2 Baso % (Auto) 0.4 Absolute Neuts (auto) 5.0 Absolute Lymphs (auto) 2.49 Nucleated RBC % 0 Sodium 139 Potassium 4.2 Chloride 106 Carbon Dioxide 21.6 Anion Gap 12 BUN 15 Creatinine 0.73 Estim Creat Clear Calc 87.53 Est GFR (MDRD) Non-Af 92 BUN/Creatinine Ratio 20.2 H Glucose 100 H Calcium 9.4 Troponin T High Sens < 6 Troponin T Hi Sens 2 Hr < 6 Urine Color Straw Urine Clarity Clear Urine pH 6.0 Ur Specific [place] 1.010 Urine Protein 15 H Urine Glucose (UA) Normal Urine Ketones Negative Urine Occult Blood Negative Urine Nitrite Negative Urine Bilirubin Negative Urine Urobilinogen Normal Ur Leukocyte Esterase Negative Urine RBC 0 SEEN Urine WBC 0 SEEN Ur Squamous Epith Cells 0-5 SEEN Urine Bacteria 0 SEEN Urine Mucus 0 SEEN Radiography Chest X-Ray - ED: 2 View, Read by ED Physician, Read by Radiologist and No Acute Disease Diagnostic Testing: Clinical Impression(s) from Imaging Studies Chest X-Ray 01/12/25 17:30 IMPRESSION: No acute cardiopulmonary disease. Reading Location: [facility] PA and lateral chest x-ray was obtained. There are 2 views. On my independent interpretation, lung perez are clear. There is normal cardiac silhouette. Bony thorax is normal. There is no acute process noted. Radiologist also interpreted the x-ray and agrees. EKG Initial EKG: Attestation: I personally reviewed and interpreted this EKG as follows: Interpretation: Sinus Rhythm (64) and No Acute Injury Pattern Comments: EKG was obtained. On my independent interpretation, it showed a normal sinus rhythm with a rate of 64. [place] interval, QRS interval, and QTc intervals were all normal. [place] was normal. There are no acute ST or T wave changes. Prior EKG tracings: available for review Prior: Unchanged (09/28/2023) Treatment and Re-Evaluation :: Patient was monitored in the emergency department. Patient was initially ordered a dose of hydralazine however, her blood pressure improved. This was held. Patient's blood pressure remained stable at 155/78. Patient was apprised that this is not at the level where it needs to be treated emergently. Patient has a HEART score of 2. Patient was advised that this is low risk for acute cardiac event. Patient was instructed to continue to monitor her blood pressures at home. Patient was instructed to follow-up with her primary care physician in 3 to 5 days for further evaluation. Patient was instructed to return if worse in any way. Patient understood and was agreeable with the plan. All questions were answered. Discharge Plan Triage Chief Complaint: Hypertension ED Provider: Davey Hilton Dx/Rx/DC Orders Clinical Impression: Essential (primary) hypertension, Headache Instructions: ED Hypertension, Established Prescriptions: No Action omeprazole 40 mg capsule,delayed release(DR/EC) 40 mg PO DAILY aspirin 81 mg tablet,chewable 81 mg PO DAILY Qty: 30 2RF Primary Care Provider: Genoveva Little Referrals: Derick Boyd MD [Med Staff - Measurement Supervisor, [facility]] - 3-5 Days Genoveva Little MD [Primary Care Provider, [facility]] - 3-5 Days Activity Restrictions/Additional Instructions: Your blood pressure was not causing any problems with your heart, lungs, brain, or other internal organs. Continue to monitor your blood pressures at home. Follow-up with your primary care physician in 3 to 5 days for further management of your blood pressure. Print Language: Turkish Disposition Disposition: Home, Self Care Discharge Date/Time: 01/12/25 21:17
--- NOTE | 2025-01-12 17:30 | RAD_ITS ---
PROCEDURE: CHEST PA AND LATERAL 01/12/2025 REASON FOR EXAM: HYPERTENSION TECHNIQUE: Procedure Code: RADCXR Modality: DX Procedure: CHEST PA AND LATERAL COMPARISON: 09/28/2023 FINDINGS: Lungs/Pleura: Clear. Heart/Mediastinum: Normal in size. Bones/Soft tissues: No significant osseous abnormality. Mild calcific tendinosis of the left shoulder rotator cuff. Electronic device overlies the anterior left chest wall. RAD/Chest PA and Lateral IMPRESSION: No acute cardiopulmonary disease. Reading Location: [id number]
[2025-01-12 17:49] LABS: Hematocrit 40.2 % (37-47); Hemoglobin 13.0 g/dL (12.0-15.0); Immature Granulocytes Count 0.050 X10^3/uL (0.0-0.0); Mean Corp Hgb Conc 32.3 g/dL (32-36); Mean Corpuscular Volume 90.7 fL (81-99); Mean Platelet Vol. 10.6 fl (6.2-12.0); NRBC Flagged by Analyzer 0 % (0-5); Platelet Count 369 K/mm3 (150-450); RBC Distribution Width CV 14.2 % (11.6-14.6); RBC Distribution Width SD 47.3 fl (35.1-43.9); Red Blood Count 4.43 M/mm3 (4.2-5.4); White Blood Count 8.2 K/mm3 (4.4-11.0)
[2025-01-12 18:06] LABS: Mucous, Urine 0 SEEN /hpf (<or=2+); Red Blood Cells-Urine 0 SEEN /hpf (0-5)
[2025-01-12 18:25] LABS: Anion Gap 12 (5-15); BUN 15 mg/dL (4-19); BUN/Creat Ratio 20.2 RATIO (10-20); Calcium,Total 9.4 mg/dL (7.6-11.0); Carbon Dioxide 21.6 mmol/L (21.0-32.0); Chloride 106 mmol/L (98-108); Estimated Creatinine Clearance 87.53 ml/min (50-250); Glucose 100 mg/dL (70-99); Potassium 4.2 mmol/L (3.3-5.1)
[2025-01-12 18:36] VITALS: BP 163/78; PULSE 64; RESP 13; O2SAT 98
[2025-01-12 18:38] LABS: Troponin T High Sensitivity < 6 ng/L (<=14)
[2025-01-12 18:48] LABS: Color, Urine Straw (Yellow); Glucose, Dipstick Normal (Normal); Ketone-Dipstick Negative (Negative); Leukocyte Esterase-Dipstick Negative /ul (Negative); Nitrite-Dipstick Negative (Negative); Occult Blood-Urine Negative /ul (Negative); Protein-Dipstick 15 mg/dl (Negative); Specific Gravity, Urine 1.010 (1.002-1.030); Urine Bilirubin Dipstick Negative (Negative)
[2025-01-12 20:00] VITALS: BP 155/78; PULSE 68; RESP 16; O2SAT 96
[2025-01-12 20:03] LABS: Squamous Epithelial Cells - UA 0-5 SEEN /hpf (5-10)
[2025-01-12 20:08] LABS: Troponin T High Sens 2 HR < 6 ng/L (<=14)
[2025-01-12 21:01] VITALS: BP 154/82; PULSE 76; RESP 16; TEMP 36.3; O2SAT 97
== END 2025-01-12 21:17 | disposition home or self-care (01) ==
PROVIDERS: Emergency Provider Emergency Medicine; PCP Pediatrics; Visit Provider Emergency Medicine
DX: I10 Essential (primary) hypertension (principal); Z87.891 Personal history of nicotine dependence; R51.9 Headache, unspecified; K21.9 Gastro-esophageal reflux disease without esophagitis; Z79.899 Other long term (current) drug therapy; Z79.82 Long term (current) use of aspirin; R07.9 Chest pain, unspecified
CPT/HCPCS: 71046; 80048; 81001; 84484; 85025; 93005; 99284; A4216